=== PATIENT | male | born 1955 | race Hispanic/Latino ===

== ENCOUNTER 2018-07-07 06:12 | Day surgery (SDC) | payer OTHER ==
[2018-07-06 11:34] VITALS: BP 120/79
[2018-07-07] VITALS (14 sets, daily range): BP systolic 113–142; BP diastolic 73–92
[~2018-07-07] VITALS: Ht 176.5 cm; Wt 101.3 kg
[~2018-07-07 06:12] MED LIST: BUPR300T54 PO; CABERGOLINE PO; CEFAZOLIN 3GM /D5W 100ML 100 ML IV PRN; DIAZ10TA4 PO; GABA-318 PO; HYDR-3422 PO; INSU100I21 SQ; INSU100I3 SQ; LEVE500T19 PO; LEVO75TA10 PO; OMEP20TA25 PO; PRAV40TA3 PO; PRIM50TA29 PO; QUET300T44 PO; SERT50TA12 PO; TAMS0.4C32 PO
[2018-07-07] MEDS ORDERED: SODIUM CHLORIDE 0.9% 1000ML 1,000 ML IV ONE (07:13)
[2018-07-07] MEDS ORDERED: LIDOCAINE PF 2% 5ML ABBOJECT ONE (08:00)
[2018-07-07] MEDS ORDERED: PROPOFOL 10 MG/ML 20ML VIAL IV ONE (08:01)
[2018-07-07] MEDS ORDERED: DEXAMETHASONE SOD PHOSPHATE 10MG/ML 1ML VIAL ONE (08:01)
[2018-07-07] MEDS ORDERED: NEOSTIGMINE 5MG/5ML SYR IV ONE (08:01)
[2018-07-07] MEDS ORDERED: MIDAZOLAM HCL 1 MG/ML 2ML VIAL ONE ×2 (08:01→09:12)
[2018-07-07] MEDS ORDERED: ROCURONIUM 10MG/1ML SYR 10 MG/ML ML ONE (08:02)
[2018-07-07] MEDS ORDERED: ONDANSETRON HCL 4 MG/2 ML VIAL ONE (08:02)
[2018-07-07] MEDS ORDERED: FENTANYL CITRATE PF 50 MCG/1 ML 2ML VIAL ONE ×2 (08:02→09:51)
[2018-07-07] MEDS ORDERED: GLYCOPYRROLATE 1 MG/5 ML SYRINGE ONE (08:07)
[2018-07-07] MEDS ORDERED: CEFAZOLIN SODIUM 1 GM VIAL IVP ONE (09:22)
[2018-07-07] MEDS ORDERED: EPHEDRINE SULFATE 50 MG/ML AMPULE ONE (10:06)
[2018-07-07] MEDS ORDERED: TYL3 PO (10:12)
[2018-07-07] MEDS ORDERED: CEPH500B PO (10:12)
[2018-07-07] MEDS ORDERED: MEPERIDINE-PF 25 MG/ML SYG ONE (10:32)
== END 2018-07-07 11:55 | disposition home or self-care (01) ==
LOC: DAH 06:12
PROVIDERS: ATTEND Orthopaedic Surgery
DX: M23.222 Derangement of posterior horn of medial meniscus due to old tear or injury, left knee (principal); M94.262 Chondromalacia, left knee; Z68.32 Body mass index [BMI] 32.0-32.9, adult; Z79.899 Other long term (current) drug therapy; E11.9 Type 2 diabetes mellitus without complications; K21.9 Gastro-esophageal reflux disease without esophagitis; Z87.891 Personal history of nicotine dependence; F32.9 Major depressive disorder, single episode, unspecified; F43.10 Post-traumatic stress disorder, unspecified; H04.129 Dry eye syndrome of unspecified lacrimal gland; G47.33 Obstructive sleep apnea (adult) (pediatric); K74.69 Other cirrhosis of liver; B18.9 Chronic viral hepatitis, unspecified; I10 Essential (primary) hypertension; Z83.3 Family history of diabetes mellitus; Z90.49 Acquired absence of other specified parts of digestive tract; Z98.890 Other specified postprocedural states
CPT/HCPCS: 29881; 82948 ×2; A4606; A4649 ×2; A4930; A6223; J0690; J1100; J2001; J2175; J2250 ×2; J2405; J2704; J2710; J3010 ×2; J3490 ×2; J7030

== ENCOUNTER 2018-08-11 04:24 | Emergency (ER) | payer OTHER ==
[~2018-08-11 04:24] MED LIST changes: -CEFAZOLIN 3GM /D5W 100ML 100 ML IV PRN; +CEPH500B PO; +TYL3 PO
[2018-08-11] MEDS ORDERED: ONDANSETRON HCL 4 MG/2 ML VIAL ONE (05:04)
[2018-08-11] MEDS ORDERED: MORPHINE SULFATE 4 MG/1ML SYG ONE (05:04)
[2018-08-11] MEDS ORDERED: MAGNESIUM CITRATE 296 ML SOLUTION ONE (06:39)
[2018-08-11] MEDS ORDERED: KETOROLAC TROMETHAMINE 30MG/ML ONE (06:39)
[2018-08-11] MEDS ORDERED: VITA-380 PO (16:26)
[2018-08-11] MEDS ORDERED: INSU100I3 SQ (16:26)
[2018-08-11] MEDS ORDERED: ASPI-555 PO (16:26)
[2018-08-11] MEDS ORDERED: CABERGOLINE PO (16:32)
[2018-08-11] MEDS ORDERED: TAMS0.4C32 PO (16:32)
[2018-08-11] MEDS ORDERED: LEVO75TA10 PO (16:32)
== END 2018-08-11 07:56 | disposition home or self-care (01) ==
LOC: EDH 04:24
DX: S83.242A Other tear of medial meniscus, current injury, left knee, initial encounter (principal); M25.562 Pain in left knee; E11.9 Type 2 diabetes mellitus without complications; Z98.890 Other specified postprocedural states; X58.XXXA Exposure to other specified factors, initial encounter; Y93.89 Activity, other specified; Y92.098 Other place in other non-institutional residence as the place of occurrence of the external cause; Y99.8 Other external cause status
CPT/HCPCS: 29505; 96372; 96374; 96375; 99284; J1885; J2270; J2405

== ENCOUNTER 2018-08-14 06:10 | Day surgery (SDC) | payer OTHER ==
[2018-08-11 15:47] VITALS: BP 125/85
[2018-08-11 16:56] LABS: BASOPHILS % (AUTO) 0.7 % (0.0-5.0); EOSINOPHILS % (AUTO) 3.8 % (0.0-8.0); HEMATOCRIT 46.7 % (42-54); LYMPHOCYTES % (AUTO) 25.1 % (21.0-51.0); MEAN CORPUSCULAR HEMOGLOBIN 27.7 pg (27.0-33.0); MEAN CORPUSCULAR HGB CONC 33.5 g/dL (32.0-36.0); MEAN CORPUSCULAR VOLUME 82.8 fL (79-99); MONOCYTES % (AUTO) 7.6 % (3.0-13.0); NEUTROPHILS % (AUTO) 62.8 % (40.0-77.0); PLATELET COUNT (AUTO) 267 K/uL (130-400); RED BLOOD CELL COUNT(AUTO) 5.64 MIL/uL (4.50-6.20); RED CELL DISTRIBUTION WIDTH 16.3 % (11.0-15.5); WHITE BLOOD COUNT (AUTO) 7.6 K/uL (4.8-10.8)
[2018-08-11 16:58] LABS: CREATININE 1.6 mg/dL (0.5-1.5); POTASSIUM 4.1 mmol/L (3.5-5.1)
[2018-08-14] VITALS (18 sets, daily range): BP systolic 117–165; BP diastolic 76–90
[~2018-08-14] VITALS: Ht 177.8 cm; Wt 99.8 kg
[~2018-08-14 06:10] MED LIST changes: +ASPI-555 PO; -CEPH500B PO; -TYL3 PO; +VITA-380 PO
[2018-08-14] MEDS ORDERED: CEFAZOLIN SODIUM 1 GM VIAL ONE (06:43)
[2018-08-14] MEDS ORDERED: SODIUM CHLORIDE 0.9% 1000ML 1,000 ML IV ONE (06:43)
[2018-08-14] MEDS ORDERED: LIDOCAINE PF 2% 5ML ABBOJECT ONE (08:15)
[2018-08-14] MEDS ORDERED: PROPOFOL 10 MG/ML 20ML VIAL IV ONE ×2 (08:15→08:48)
[2018-08-14] MEDS ORDERED: FENTANYL CITRATE PF 50 MCG/1 ML 2ML VIAL ONE (08:16)
[2018-08-14] MEDS ORDERED: MIDAZOLAM HCL 1 MG/ML 2ML VIAL ONE (08:16)
[2018-08-14] MEDS ORDERED: DEXAMETHASONE SOD PHOSPHATE 10MG/ML 1ML VIAL ONE (08:16)
[2018-08-14] MEDS ORDERED: ONDANSETRON HCL 4 MG/2 ML VIAL ONE (08:16)
[2018-08-14] MEDS ORDERED: EPHEDRINE SULFATE 50 MG/ML AMPULE ONE (08:26)
[2018-08-14] MEDS ORDERED: CEPH500B PO (09:34)
[2018-08-14] MEDS ORDERED: MEPERIDINE-PF 25 MG/ML SYG ONE ×2 (09:57→10:03)
== END 2018-08-14 11:45 | disposition home or self-care (01) ==
LOC: DAH 06:10
PROVIDERS: ATTEND Orthopaedic Surgery
DX: S83.242A Other tear of medial meniscus, current injury, left knee, initial encounter (principal); X58.XXXA Exposure to other specified factors, initial encounter; Y93.9 Activity, unspecified; Y92.812 Truck as the place of occurrence of the external cause; Y99.9 Unspecified external cause status; M94.262 Chondromalacia, left knee; Z68.31 Body mass index [BMI] 31.0-31.9, adult; E11.9 Type 2 diabetes mellitus without complications; K21.9 Gastro-esophageal reflux disease without esophagitis; Z87.891 Personal history of nicotine dependence; F32.9 Major depressive disorder, single episode, unspecified; F43.10 Post-traumatic stress disorder, unspecified; H04.129 Dry eye syndrome of unspecified lacrimal gland; G47.33 Obstructive sleep apnea (adult) (pediatric); Z79.899 Other long term (current) drug therapy; Z90.49 Acquired absence of other specified parts of digestive tract; Z98.890 Other specified postprocedural states; Z83.3 Family history of diabetes mellitus; I10 Essential (primary) hypertension; B19.9 Unspecified viral hepatitis without hepatic coma; E66.9 Obesity, unspecified
CPT/HCPCS: 29881; 36415; 80048; 82948 ×2; 85025; A4606; A4649 ×2; A4930; A6223; J0690; J1100; J2001; J2175 ×2; J2250; J2405; J2704 ×2; J3010; J3490; J7030 ×2

== ENCOUNTER 2019-04-20 10:00 | Inpatient (IN) | payer OTHER ==
[~2019-04-20] VITALS: Ht 177.8 cm; Wt 97.7 kg
[~2019-04-20 10:00] MED LIST changes: -ASPI-555 PO; -DIAZ10TA4 PO; -GABA-318 PO; +GABA600T10 PO; -VITA-380 PO
[2019-04-20 14:10] VITALS: BP 108/79
[2019-04-20 14:24] LABS: APPEARANCE,URINE CLOUDY (CLEAR); BILIRUBIN,URINE NEGATIVE (NEGATIVE); COLOR,URINE YELLOW (YELLOW); GLUCOSE, URINE (UA) NEGATIVE (NEGATIVE); KETONES,URINE NEGATIVE (NEGATIVE); LEUKOCYTE ESTERASE ,URINE NEGATIVE (NEGATIVE); NITRATE,URINE NEGATIVE (NEGATIVE); OCCULT BLOOD,URINE NEGATIVE (NEGATIVE); PH,URINE 7.5 (5.0-8.0); PROTEIN,URINE 100 mg/dL (NEGATIVE)
[2019-04-20 14:47] LABS: RBC,URINE 0-1 /HPF (0-1)
[2019-04-20 14:49] LABS: WBC,URINE 0-1 /HPF (0-1)
[2019-04-20 14:50] LABS: BACTERIA,URINE Many /HPF (None Seen); SQUAMOUS EPITHELIAL CELL,UR Rare /HPF (0-2)
[2019-04-20] MEDS ORDERED: DOCU-116 PO (15:31)
[2019-04-20] MEDS ORDERED: CEFAZOLIN SODIUM 1 GM VIAL IVP SCH (17:00)
[2019-04-23] VITALS (23 sets, daily range): BP systolic 90–136; BP diastolic 52–89
[2019-04-23] MEDS: CEFAZOLIN SODIUM 1 GM VIAL IVP SCH ×3 (06:00→16:04)
[2019-04-23] MEDS ORDERED: SODIUM CHLORIDE 0.9% 1000ML 1,000 ML IV ONE (07:06)
--- NOTE | 2019-04-23 08:00 | NUR ---
PREP pt surgical site clipped and chlorhexidine 2% towels used to wipe surgical site x 2 by Ludwig Alexander Addendum: 04/23/19 at 0850 by IVIS ELLIS RN RN Amended: Links added.
[2019-04-23] MEDS ORDERED: ROPIVACAINE 0.5% 5MG/ML 30ML IJ ONE (08:01)
[2019-04-23] MEDS ORDERED: PROPOFOL 10 MG/ML 20ML VIAL IV ONE (08:02)
[2019-04-23] MEDS ORDERED: LIDOCAINE PF 2% 5ML ABBOJECT ONE ×2 (08:02→08:04)
[2019-04-23] MEDS ORDERED: MIDAZOLAM HCL 1 MG/ML 2ML VIAL ONE (08:03)
[2019-04-23] MEDS ORDERED: FENTANYL CITRATE PF 50 MCG/1 ML 2ML VIAL ONE (08:03)
[2019-04-23] MEDS ORDERED: ROCURONIUM 10MG/1ML SYR 10 MG/ML ML ONE (08:03)
[2019-04-23] MEDS ORDERED: CABE0.5T2 PO (08:44)
[2019-04-23] MEDS ORDERED: CEFAZOLIN SODIUM 1 GM VIAL ONE (08:45)
[2019-04-23] MEDS ORDERED: EPHEDRINE SULFATE 50 MG/ML AMPULE ONE (08:45)
[2019-04-23] MEDS ORDERED: TRANEXAMIC ACID 1000MG/10ML IV ONE (08:46)
[2019-04-23] MEDS ORDERED: GLYCOPYRROLATE 1 MG/5 ML SYRINGE ONE (08:54)
[2019-04-23] MEDS ORDERED: NEOSTIGMINE 5MG/5ML SYR IV ONE (10:33)
[2019-04-23] MEDS ORDERED: ONDANSETRON HCL 4 MG/2 ML VIAL ONE (10:35)
[2019-04-23] MEDS ORDERED: KETOROLAC TROMETHAMINE 30MG/ML ONE (10:35)
[2019-04-23] MEDS ORDERED: FERROUS FUMARATE 324 MG TABLET PO PRN (10:45)
[2019-04-23] MEDS ORDERED: KETOROLAC TROMETHAMINE 15MG/ML IV PRN (10:45)
[2019-04-23] MEDS ORDERED: TRAMADOL HCL 50 MG TABLET PO PRN (10:45)
[2019-04-23] MEDS ORDERED: LIDOCAINE HCL-MPF 1% 2ML VIAL IVP PRN (10:45)
[2019-04-23] MEDS ORDERED: DiphenhydrAMINE HCL 50 MG/ML VIAL IVP PRN (10:45)
[2019-04-23] MEDS ORDERED: OXYCODONE HCL 5 MG TAB PO PRN (10:45)
[2019-04-23] MEDS ORDERED: TEMAZEPAM 15 MG CAPSULE PO PRN (10:45)
[2019-04-23] MEDS ORDERED: CALCIUM CARBONATE 500 MG TABLET PO PRN (10:45)
[2019-04-23] MEDS ORDERED: POTASSIUM CHLORIDE 20MEQ/100ML 100 ML IV PRN (10:45)
[2019-04-23] MEDS ORDERED: POTASSIUM CHLORIDE 10% ELIXIR 20 MEQ/15 ML UDCUP PO PRN (10:45)
[2019-04-23] MEDS ORDERED: ONDANSETRON HCL 4 MG/2 ML VIAL IVP PRN (10:45)
[2019-04-23] MEDS ORDERED: POTASSIUM CHLORIDE 20 MEQ ERTAB PO PRN (10:45)
[2019-04-23] MEDS ORDERED: PHENYLEPHRINE HCL 10 MG/ML 1ML VIAL IV ONE (10:48)
[2019-04-23] MEDS ORDERED: SODIUM CHLORIDE 0.9% 10 ML VIAL ONE (10:48)
[2019-04-23] MEDS ORDERED: MEPERIDINE-PF 25 MG/ML SYG ONE ×2 (11:32→11:40)
[2019-04-23] MEDS: ACETAMINOPHEN EXTRA STRENGTH 500 MG TABLET PO SCH ×2 (12:15→18:08)
[2019-04-23] MEDS: SODIUM CHLORIDE 0.9% 1000ML 1,000 ML IV SCH ×2 (12:15→20:49)
[2019-04-23] MEDS: INSULIN HUMULIN R 100 UNIT/ML 3ML SQ SCH ×3 (12:15→20:47)
[2019-04-23] MEDS: OXYCODONE HCL 5 MG TAB PO PRN ×2 (14:29→20:39)
--- NOTE | 2019-04-23 15:00 | NUR ---
[facility]IAL [facility]POE[facility] S[facility], LIVES W SPOUSE WHO WILL PROVIDE TRANSPORT, HAS WKR, WC, SC, CANE; HOME SAFE AND ACCESSIBEL, CONSENT FOR [place] TO ARRANGE HH SIGNED. VERBALIZED UNDERSTANDING Addendum: 04/24/19 at 1737 by LAURENCE CARRILLO RN CM Amended: Links added.
[2019-04-23] MEDS ORDERED: HYDROMORPHONE PCA 10 MG/50 ML 50 ML IV PRN (16:15)
[2019-04-23] MEDS ORDERED: SODIUM CHLORIDE 0.9% 1000ML 1,000 ML IV PRN (16:30)
[2019-04-23] MEDS ORDERED: NALOXONE HCL 0.4 MG/1 ML ML IVP PRN (16:30)
[2019-04-23] MEDS ORDERED: HYDROMORPHONE PCA 10MG/50 ML ( 0.2 MG/ML ) IV PRN (16:30)
[2019-04-23] MEDS ORDERED: CABERGOLINE PO SCH (18:03)
[2019-04-23] MEDS: QUETIAPINE FUMARATE 100 MG TAB PO SCH (20:43)
[2019-04-23] MEDS: ATORVASTATIN CALCIUM 10 MG TABLET PO SCH (20:44)
[2019-04-23] MEDS: GABAPENTIN 300 MG CAPSULE PO SCH (20:44)
[2019-04-23] MEDS: DOCUSATE SODIUM 100 MG CAP PO SCH (20:44)
[2019-04-23] MEDS: HYDROXYZINE HCL 25 MG TABLET PO SCH (20:44)
[2019-04-23] MEDS: ASPIRIN 325 MG TABLET PO SCH (20:44)
[2019-04-23] MEDS: PRIMIDONE 50 MG TAB PO SCH (20:44)
[2019-04-23] MEDS: LEVETIRACETAM 500 MG TABLET PO SCH (20:44)
[2019-04-23] MEDS: CELECOXIB 200 MG CAP PO SCH (20:44)
[2019-04-23] MEDS: INSULIN LISPRO 100 UNIT/ML 3ML SQ SCH (20:46)
[2019-04-23] MEDS: INSULIN GLARGINE 100 UNITS/ML 10 ML VIAL SQ SCH (20:47)
[2019-04-24] MEDS: CEFAZOLIN SODIUM 1 GM VIAL IVP SCH (00:44)
[2019-04-24] MEDS: OXYCODONE HCL 5 MG TAB PO PRN (00:44)
[2019-04-24] MEDS: ACETAMINOPHEN EXTRA STRENGTH 500 MG TABLET PO SCH ×3 (02:25→18:17)
[2019-04-24 03:15] VITALS: BP 99/60
--- NOTE | 2019-04-24 04:00 | NUR ---
NO VOID PATIENT UNABLE TO VOID BLADDER SCANNED TO SHOW 999ML. PATIENT WAS THEN STRAIGHT CATHETERIZED AND REMOVED 1100 ML OF CLEAR YELLOW URINE.
[2019-04-24 04:48] LABS: HEMATOCRIT 32.4 % (42-54); MEAN CORPUSCULAR HEMOGLOBIN 27.7 pg (27.0-33.0); MEAN CORPUSCULAR HGB CONC 33.1 g/dL (32.0-36.0); MEAN CORPUSCULAR VOLUME 83.6 fL (79-99); NUCLEATED RED BLOOD CELLS 0.1 % (0.0-0.19); PLATELET COUNT (AUTO) 147 K/uL (130-400); RED BLOOD CELL COUNT(AUTO) 3.88 MIL/uL (4.50-6.20); RED CELL DISTRIBUTION WIDTH 14.8 % (11.0-15.5); WHITE BLOOD COUNT (AUTO) 4.9 K/uL (4.8-10.8)
[2019-04-24 05:13] LABS: CREATININE 1.3 mg/dL (0.5-1.5); POTASSIUM 4.5 mmol/L (3.5-5.1)
[2019-04-24] MEDS: LEVOTHYROXINE 75 MCG TABLET PO SCH (05:41)
[2019-04-24] MEDS: INSULIN HUMULIN R 100 UNIT/ML 3ML SQ SCH ×4 (06:12→20:45)
[2019-04-24] MEDS: SODIUM CHLORIDE 0.9% 1000ML 1,000 ML IV SCH (06:25)
[2019-04-24 07:33] VITALS: BP 102/60
[2019-04-24] MEDS: GABAPENTIN 300 MG CAPSULE PO SCH ×2 (08:21→20:38)
[2019-04-24] MEDS: LEVETIRACETAM 500 MG TABLET PO SCH ×2 (08:21→20:38)
[2019-04-24] MEDS: HYDROXYZINE HCL 25 MG TABLET PO SCH ×3 (08:21→20:38)
[2019-04-24] MEDS: SERTRALINE HCL 50 MG TABLET PO SCH (08:21)
[2019-04-24] MEDS: PRIMIDONE 50 MG TAB PO SCH ×2 (08:21→20:37)
[2019-04-24] MEDS: CELECOXIB 200 MG CAP PO SCH ×2 (08:21→20:38)
[2019-04-24] MEDS: PANTOPRAZOLE SODIUM 40 MG TABLET.DR PO SCH (08:21)
[2019-04-24] MEDS: POLYETHYLENE GLYCOL 3350 17 GM POWD.PACK PO SCH (08:21)
[2019-04-24] MEDS: DOCUSATE SODIUM 100 MG CAP PO SCH ×2 (08:21→20:37)
[2019-04-24] MEDS: ASPIRIN 325 MG TABLET PO SCH ×2 (08:22→20:37)
[2019-04-24] MEDS: BUPROPION HCL 150 MG TABLET.SA PO SCH (08:22)
--- NOTE | 2019-04-24 08:30 | NUR ---
PLANNING [facility] SPOKE TO JOSE WHO REC'D THE ORDERS/INFO. WILL SET UP Addendum: 04/24/19 at 1739 by LAURENCE CARRILLO RN CM Amended: Links added.
[2019-04-24] MEDS: INSULIN GLARGINE 100 UNITS/ML 10 ML VIAL SQ SCH ×2 (08:31→20:45)
[2019-04-24 11:10] VITALS: BP 111/62
[2019-04-24] MEDS: TAMSULOSIN HCL 0.4 MG CAP.ER.24H PO SCH (13:01)
[2019-04-24 15:41] VITALS: BP 101/65
[2019-04-24 19:35] VITALS: BP 114/67
[2019-04-24] MEDS: QUETIAPINE FUMARATE 100 MG TAB PO SCH (20:37)
[2019-04-24] MEDS: ATORVASTATIN CALCIUM 10 MG TABLET PO SCH (20:38)
[2019-04-24] MEDS: INSULIN LISPRO 100 UNIT/ML 3ML SQ SCH (20:44)
[2019-04-24 23:40] VITALS: BP 112/63
[2019-04-25] MEDS: ACETAMINOPHEN EXTRA STRENGTH 500 MG TABLET PO SCH ×2 (02:45→11:02)
[2019-04-25 03:10] VITALS: BP 106/66
[2019-04-25] MEDS: INSULIN HUMULIN R 100 UNIT/ML 3ML SQ SCH ×2 (05:42→11:30)
[2019-04-25] MEDS: LEVOTHYROXINE 75 MCG TABLET PO SCH (05:44)
[2019-04-25 07:59] VITALS: BP 116/70
[2019-04-25] MEDS: INSULIN GLARGINE 100 UNITS/ML 10 ML VIAL SQ SCH (09:00)
[2019-04-25] MEDS: DOCUSATE SODIUM 100 MG CAP PO SCH (09:19)
[2019-04-25] MEDS: PANTOPRAZOLE SODIUM 40 MG TABLET.DR PO SCH (09:19)
[2019-04-25] MEDS: ASPIRIN 325 MG TABLET PO SCH (09:19)
[2019-04-25] MEDS: POLYETHYLENE GLYCOL 3350 17 GM POWD.PACK PO SCH (09:19)
[2019-04-25] MEDS: HYDROXYZINE HCL 25 MG TABLET PO SCH (09:20)
[2019-04-25] MEDS: SERTRALINE HCL 50 MG TABLET PO SCH (09:20)
[2019-04-25] MEDS: GABAPENTIN 300 MG CAPSULE PO SCH (09:21)
[2019-04-25] MEDS: BUPROPION HCL 150 MG TABLET.SA PO SCH (09:21)
[2019-04-25] MEDS: CELECOXIB 200 MG CAP PO SCH (09:21)
[2019-04-25] MEDS: LEVETIRACETAM 500 MG TABLET PO SCH (09:21)
[2019-04-25] MEDS: PRIMIDONE 50 MG TAB PO SCH (09:21)
[2019-04-25 11:11] VITALS: BP 124/77
--- NOTE | 2019-04-25 11:45 | NUR ---
DR. GRAHAM CONSULT DR. GRAHAM WAS CALLED AND INFORMED OF CONSULT FOR URINARY RETENTION. INSTRUCTED THAT PATIENT BE SENT HOME WITH [facility] AND WILL FOLLOW UP IN HIS OFFICE TUESDAY OR TUESDAY.
[2019-04-25] MEDS: TAMSULOSIN HCL 0.4 MG CAP.ER.24H PO SCH (12:08)
[2019-04-25] MEDS ORDERED: ASPI-1012 PO (12:51)
[2019-04-25] MEDS ORDERED: HYDR-4457 PO (12:51)
--- NOTE | 2019-04-25 15:00 | NUR ---
DISCHARGE INSTRUCTIONS DISCUSSED WITH PATIENT AND DISCHARGED TO HOME WITH HOME HEALTH. REPORT WAS CALLED TO ALFREDO RANGEL RN. DISCUSSED WITH PATIENT TOTAL KNEE REPLACEMENT, SURGICAL SITE INFECTIONS, HOME DIET, CONTINUING HOME MEDS, PRESCRIPTION MEDS PURPOSE, DOSE, ROUTE, FREQUENCY, DURATION, SIDE EFFECTS AND TIME NEXT DOSE IS DUE OR MAY BE GIVEN, DRESSING CHANGES, WEARING BEATRICE HOSE FROM SUN UP TO SUN DOWN, PHYSICAL THERAPY AND EXERCISES AND [facility]. PATIENT WAS INSTRUCTED TO FOLLOW UP WITH DR. MENARD SCHEDULED AND WITH DR. GRAHAM SCHEDULED OR SOONER IF ANY CONCERNS. PATIENT WAS INSTRUCTED TO CALL MD OFFICE WITH ANY QUESTIONS OR CONCERNS, VISIT THE EMERGENCY ROOM OR CALL 911 FOR CHEST PAIN OR SHORTNESS OF BREATH. DISCHARGE INSTRUCTIONS DISCUSSED UTILIZING TEACHBACK WITH SUCCESSFUL INFORMATION OBTAINED FROM PATIENT AND .
--- NOTE | 2019-04-25 16:10 | NUR ---
PROBLEM W DME CALLED BY PRIMARY RN- ADVISING THAT PT REQUESTING WALKER. JEYSON LOOKED AT [facility]- PT HAS WALKER PER INITIAL INTERVIEW,SPOKE W PT, AND SPOUSE- MISUNDERSTANDING, PT DOES NOT HAVE WALKER, NEED ONE, CALL TO JOSE AT [facility], ADDED WALKER TO REQUEST, JOSE CHECK AND PURCHASE ORDER HAD NOT GONE OUT, WAS ATTEMPTING TO MAKE CONTACT WITH [employer] TO ADD WALKER, JOSE STATES WILL HAVE WLAKER AND 3 IN 1 DELIVERED TO PT'S HOME AND DME COMPANY WILL RETURN TO HOSPITAL IN AM. Addendum: 04/25/19 at 1700 by LAURENCE CARRILLO RN CM Amended: Links added.
[2019-04-26] MEDS ORDERED: BISACODYL 10 MG SUPP.RECT RC PRN (10:45)
== END 2019-04-25 16:20 | disposition home health service (06) | DRG 470 ==
LOC: DAHIP 04-23 06:46 → 4AH 04-23 11:50
PROVIDERS: ADMIT Orthopaedic Surgery; ATTEND Orthopaedic Surgery
PROC: 0SRD0J9 Replacement of Left Knee Joint with Synthetic Substitute, Cemented, Open Approach (ICD-10-PCS; principal; 2019-04-23 08:30)
DX: M17.12 Unilateral primary osteoarthritis, left knee (principal); F32.9 Major depressive disorder, single episode, unspecified; E11.9 Type 2 diabetes mellitus without complications; K21.9 Gastro-esophageal reflux disease without esophagitis; F17.200 Nicotine dependence, unspecified, uncomplicated; F43.10 Post-traumatic stress disorder, unspecified; G47.33 Obstructive sleep apnea (adult) (pediatric); H91.93 Unspecified hearing loss, bilateral; I10 Essential (primary) hypertension; K73.9 Chronic hepatitis, unspecified; K74.60 Unspecified cirrhosis of liver; H04.129 Dry eye syndrome of unspecified lacrimal gland; Z83.3 Family history of diabetes mellitus; Z82.0 Family history of epilepsy and other diseases of the nervous system; R33.9 Retention of urine, unspecified
CPT/HCPCS: 36415; 80048; 81001; 82948; 85027; 85730; 87641; 88304; 88311; G0378; J0690; J1170; J1885; J2001; J2175; J2250; J2370; J2405; J2704; J2710; J2795; J3010; J3490; J7030; J7120

== ENCOUNTER 2019-04-30 09:13 | Emergency (ER) | payer OTHER ==
[~2019-04-30 09:13] MED LIST changes: +ASPI-1012 PO; +CABE0.5T2 PO; +DOCU-116 PO; +HYDR-4457 PO
== END 2019-04-30 10:18 | disposition home or self-care (01) ==
LOC: EDH 09:13
DX: Z46.6 Encounter for fitting and adjustment of urinary device (principal); E11.9 Type 2 diabetes mellitus without complications; Z79.4 Long term (current) use of insulin
CPT/HCPCS: 99281

== ENCOUNTER → 2024-03-02 | Outpatient (CLI) | payer OTHER ==
[~2024-03-02] MED LIST changes: +BUPR-561 PO; -BUPR300T54 PO; -INSU100I21 SQ; +INSU100I22 SQ; +OMEP20TA20 PO; -OMEP20TA25 PO; +QUET300T19 PO; -QUET300T44 PO; +SERT-439 PO; -SERT50TA12 PO
== END | disposition home or self-care (01) ==
LOC: RAH 07:10
PROVIDERS: ATTEND Family Medicine
DX: S83.231A Complex tear of medial meniscus, current injury, right knee, initial encounter (principal); M25.561 Pain in right knee; X58.XXXA Exposure to other specified factors, initial encounter; Y93.89 Activity, other specified; Y92.89 Other specified places as the place of occurrence of the external cause; Y99.8 Other external cause status
CPT/HCPCS: 73721